=== PATIENT | female | born 1995 | race Caucasian/White ===

== ENCOUNTER → 2022-11-13 | Outpatient (CLI) | payer MEDICAID, OTHER ==
[2022-11-13 14:05] LABS: BASO % 0.1 % (0.0-1.0); EOS % 0.4 % (0.0-3.0); HEMATOCRIT 37.6 % (36.0-47.0); HEMOGLOBIN 12.7 g/dl (12.0-15.5); LYMPH # 1.9 10^3/uL (1.5-5.0); LYMPH % 24.8 % (24.0-44.0); MEAN CORPUSCULAR HEMOGLOBIN 31.9 pg (27.0-33.0); MEAN CORPUSCULAR HGB CONC 33.8 g/dl (32.0-36.5); MEAN CORPUSCULAR VOLUME 94.5 fl (80.0-96.0); MONO # 0.5 10^3/uL (0.0-0.8); MONO % 6.5 % (2.0-8.0); NEUTROPHILS # 5.1 10^3/uL (1.5-8.5); NEUTROPHILS % 67.9 % (36.0-66.0); PLATELET COUNT, AUTOMATED 217 10^3/uL (150-450); RED BLOOD COUNT 3.98 10^6/uL (4.00-5.40); WHITE BLOOD COUNT 7.5 10^3/uL (4.0-10.0)
[2022-11-13 14:20] LABS: HEMOGLOBIN A1c 4.8 % (4.0-6.0)
[2022-11-13 14:32] LABS: ALBUMIN 3.7 G/DL (3.2-5.2); ALKALINE PHOSPHATASE 103 U/L (46-116); ALT/SGPT 16 U/L (7.0-40); AST/SGOT 13 U/L (<34); BILIRUBIN,TOTAL 0.6 MG/DL (0.3-1.2); BLOOD UREA NITROGEN 16 MG/DL (9-23); CALCIUM LEVEL 8.8 MG/DL (8.5-10.1); CARBON DIOXIDE LEVEL 25 MMOL/L (20-31); CHLORIDE LEVEL 108 MMOL/L (98-107); GLOMERULAR FILTRATION RATE > 60.0 (>60); GLUCOSE, FASTING 79 MG/DL (60-100); IRON (FE) 67 UG/DL (50-170); POTASSIUM SERUM 3.8 MMOL/L (3.5-5.1); SODIUM LEVEL 138 MMOL/L (136-145); TOTAL PROTEIN 6.5 G/DL (5.7-8.2)
[2022-11-13 14:33] LABS: PERCENT SATURATION 21.8 % (13.2-45.0); TOTAL IRON BINDING CAPACITY 307 UG/DL (250-425)
[2022-11-13 14:34] LABS: FERRITIN 18.3 NG/ML (7.3-270.7); FREE T4 1.06 NG/DL (0.89-1.76); THYROID STIMULATING HORMONE 1.641 uIU/ML (0.55-4.78)
[2022-11-13 14:35] LABS: TOTAL 25(OH) VITAMIN D 24.9 NG/ML (20.0-100.0); VITAMIN B12 LEVEL 302 PG/ML (211-911)
== END ==
LOC: M LAB 13:11
PROVIDERS: ATTEND Family Medicine
DX: E66.9 Obesity, unspecified (principal); Z86.2 Personal history of diseases of the blood and blood-forming organs and certain disorders involving the immune mechanism

== ENCOUNTER → 2022-12-14 | Outpatient (CLI) | payer OTHER | LOC: M SOG 07:51 | PROVIDERS: ATTEND Orthopaedic Surgery | DX: M54.50 Low back pain, unspecified (principal); Z53.9 Procedure and treatment not carried out, unspecified reason ==

== ENCOUNTER → 2023-01-12 | Outpatient (CLI) | payer OTHER | LOC: M PLALAB 14:41 | PROVIDERS: ATTEND Specialist | DX: N92.6 Irregular menstruation, unspecified (principal) ==

== ENCOUNTER → 2024-12-14 | Outpatient (REF) | payer OTHER, MEDICAID ==
[~2024-12-14] MED LIST: IBUP-1114 PO
[2024-12-16 14:43] LABS: HPV APTIMA Not Detected (Not Detected)
== END ==
LOC: M PLALAB 09:29
PROVIDERS: ATTEND Specialist
DX: Z12.4 Encounter for screening for malignant neoplasm of cervix (principal)

== ENCOUNTER 2024-12-20 12:35 | Emergency (ER) | payer OTHER, MEDICAID ==
[~2024-12-20] VITALS: Ht 165.1 cm; Wt 90.3 kg
[2024-12-20] MEDS ORDERED: IBUP-1114 PO (12:54)
[2024-12-20 16:02] VITALS: BP 118/58; TEMP 97.5; O2SAT 100
== END 2024-12-20 17:19 | disposition left against medical advice (07) ==
LOC: M ED 12:35
DX: Z53.21 Procedure and treatment not carried out due to patient leaving prior to being seen by health care provider (principal)